=== PATIENT | female | born 1965 | race Asian ===

== ENCOUNTER 2019-10-08 13:48 | Emergency (ER) | payer SELFPAY ==
[~2019-10-08] VITALS: Ht 160 cm; Wt 56.7 kg
[2019-10-08 14:28] LABS: BASOPHILS % 0.7 % (0.0-1.0); EOSINOPHILS % 0.9 % (0.0-6.0); HEMATOCRIT 39.3 % (34.2-44.1); HEMOGLOBIN 12.9 g/dL (12.0-16.0); LYMPHOCYTES # (AUTO) 1.2 (1.0-3.2); LYMPHOCYTES % 28.4 % (18.0-39.1); MEAN CORPUSCULAR HEMOGLOBIN 29.2 pg (28-32); MEAN CORPUSCULAR HGB CONC 32.8 g/dL (31-35); MEAN CORPUSCULAR VOLUME 88.9 fL (81-99); MONOCYTES # (AUTO) 0.3 (0.2-0.8); MONOCYTES % 5.7 % (4.4-11.3); NEUTROPHILS # (AUTO) 2.8 (2.1-6.9); NEUTROPHILS % 64.1 % (38.7-80.0); PLATELET COUNT 193 x10e3/uL (140-360); RED BLOOD COUNT 4.42 x10e6/uL (3.6-5.1); RED CELL DISTRIBUTION WIDTH 11.5 % (11.7-14.4)
[2019-10-08 14:32] LABS: CLARITY,URINE CLEAR (CLEAR); COLOR,URINE YELLOW (YELLOW)
[2019-10-08 14:33] LABS: BILIRUBIN,URINE NEGATIVE (NEGATIVE); KETONES,URINE NEGATIVE (NEGATIVE); LEUKOCYTE ESTERASE ,URINE SMALL (NEGATIVE); NITRITE,URINE NEGATIVE (NEGATIVE); PREGNANCY TEST, URINE NEGATIVE (NEGATIVE); PROTEIN,URINE DIPSTICK NEGATIVE (NEGATIVE); URINE UROBILINOGEN 0.2 mg/dL (0.2 - 1)
--- NOTE | 2019-10-08 14:42 | Diagnostic Imaging Report ---
CT of the abdomen and pelvis, without contrast. History: Abdominal/flank pain. Comparison: None available. Technique: Multidetector CT scanning of the abdomen and pelvis was performed from the level of the lung bases to the inferior pubic rami without the use of contrast material. Coronal and sagittal multiplanar reformations were obtained. RADIATION DOSE: Total DLP: 218.21 mGy*cm Dose modulation, iterative reconstruction, and/or weight based adjustment of the mA/kV was utilized to reduce the radiation dose to as low as reasonably achievable. FINDINGS: The visualized intrathoracic contents demonstrate no significant abnormalities. The liver is normal in size and attenuation on this noncontrast enhanced examination. The gallbladder is unremarkable. There is no biliary ductal dilatation. The stomach, spleen, pancreas, and bilateral adrenal glands demonstrate an unremarkable noncontrast appearance. The kidneys are normal in size and location. There is a 3 mm nonobstructing stone identified within the inferior pole of the right kidney. There is no evidence for hydronephrosis. No ureteral stone or dilatation is appreciated. The urinary bladder demonstrates no significant abnormalities. The uterus and adnexa are grossly unremarkable. The abdominal aorta is normal course and caliber. The IVC is normal in caliber. Please note evaluation evaluation the bowel is limited without the use of enteric contrast material. The visualized loops of small and large bowel demonstrate no evidence of obstruction or inflammation. The appendix is not definitively visualized but there is no evidence of inflammation within its expected location within the right lower quadrant. There is no ascites or intraperitoneal free air. No abnormally enlarged lymph nodes are identified within the abdomen and pelvis. The osseous structures demonstrate no evidence for acute fracture or destructive process. The extraperitoneal soft tissues are unremarkable. IMPRESSION: 3 mm nonobstructing stone identified within the inferior pole the right kidney. No other acute abdominopelvic process identified. Signed by: Dr. Thomas Goodman MD on 10/08/2019 2:39 PM
[2019-10-08 14:44] LABS: BACTERIA,URINE MODERATE /HPF; EPITHELIAL CELLS,URINE MODERATE /LPF; RBC,URINE 0-5 /HPF (0-5)
[2019-10-08 14:47] LABS: ALANINE AMINOTRANSFERASE 25 IU/L (0-55); ALBUMIN 3.9 g/dL (3.5-5.0); ALBUMIN/GLOBULIN RATIO 1.3 (0.8-2.0); ALKALINE PHOSPHATASE 82 IU/L (40-150); BLOOD UREA NITROGEN 13 mg/dL (7-26); BUN/CREATININE RATIO 17 (6-25); CALCIUM 8.9 mg/dL (8.4-10.2); CARBON DIOXIDE 28 mmol/L (22-29); CHLORIDE 105 mmol/L (98-107); CREATININE, SERUM 0.77 mg/dL (0.57-1.11); EST GLOMERULAR FILTRATION RATE > 60 ML/MIN (60-); GLUCOSE 154 mg/dL (74-118); SODIUM 141 mmol/L (136-145)
[2019-10-08] MEDS ORDERED: SODIUM CHLORIDE 0.9% 1000ML 1,000 ML IV STA (14:59)
[2019-10-08] MEDS ORDERED: KETOROLAC TROMETHAMINE 30 MG/ML VIAL IV STA (15:00)
--- OUTSIDE RECORDS SUMMARY | 2019-10-08 16:08 | XMS REPORT ---
Author Author Sofiya Lopez [facility] eClinicalWorks Address Unknown Phone Unavailable Care Team Providers Care Food And Beverage Assistant Name Role Phone Jae Lopez Unavailable Allergies No Known Allergies Problems Problem Type Condition Code Onset Dates Condition Statu s Problem Diffuse cystic mastopathy of right breast N60.11 Active Problem Diffuse cystic mastopathy of left breast N60.12 Active Problem Other atopic dermatitis L20.89 Acti ve Problem hyperthyroidism w/o mention of goiter, crisis or storm 242.90 Active Problem Need hepatitis vaccine (A or B or A/B) V05.3 Active Medications No Known Medications Results No Known Results Summary Purpose eClinicalWorks Submission
--- OUTSIDE RECORDS SUMMARY | 2019-10-08 16:08 | XMS REPORT ---
Author Author Sofiya Albright Organization eClinical[employer] Address Unknown Phone Unavailable Care Team Providers Care Magnet Placer Name Role Phone Vanna Albright CP Unavailable Allergies, Adverse Reactions, Alerts Substance Reaction Event Type Penicillin shortness of breath Drug Allergy Problems Problem Type Condition Code Onset Dates Condition Statu s Assessment Diffuse cystic mastopathy of left breast N60.12 Active Assessment Encounter for gynecological examination without abnormal finding Z01.419 Active Assessment Screening for colon cancer Z12.11 A ctive Assessment Diffuse cystic mastopathy of right breast N60.11 Active Problem Diffuse cystic mastopathy of left breast N60.12 Active Problem hyperthyroidism w/o mention of goiter, crisis or storm 242.90 Active Problem Diffuse cystic mastopathy of right breast N60.11 Active Assessment Screening for cervical cancer Z12.4 Active Assessment Breast cancer screening Z12.39 Acti ve Problem Need hepatitis vaccine (A or B or A/B) V05.3 Active Medications Medication Code System Code Instructions Start Date End Date Status Dosage Methimazole ND 83438975583 10 MG Orally three times a day Nov 2013 Active 1 tablet with food Propranolol HCl [facility] 78416816157 10 MG Orally Three times a day N ov 2013 Active 1 tablet Results Name Result Date Reference Range Unit Abnormali ty Flag Pap IG, Ct-Ng, HPV-hr (288120) >30 +STD ----. . [id number] ----HPV, high-risk Negative [id number] Negative ----Chlamydia, Nuc. Acid Amp Negative [id number] Negative ----Gonococcus, Nuc. Acid Amp Negative [id number] Negative PDF Report ----PDF Report1 [facility] [id number] Summary Purpose eClinicalWorks Submission
--- OUTSIDE RECORDS SUMMARY | 2019-10-08 16:09 | XMS REPORT | Continuity of Care Document ---
Author Author [facility] Organization [facility] Address [address] [place] [address] Phone Unavailable Care Team Providers Care Erp Programmer Name Role Phone Usama NIELSON Attramausama Unavailable Problems Condition Name Condition Details Condition Category Status Onset Date Resolution Date Last Treatment Date Treating Clinician Comments Source Diffuse cystic mastopathy of left breast Diffuse cysti c mastopathy of left breast Problem Active [facility] Diffuse cystic mastopathy of right breast Diffuse cyst ic mastopathy of right breast Problem Active [facility] hyperthyroidism w/o mention of goiter, crisis or storm hyperthyroidism w/o mention of goiter, crisis or storm Problem Active [facility] Need hepatitis vaccine (A or B or A/B) Need hepatitis vaccin e (A or B or A/B) Problem Active [facility] Other atopic dermatitis Other atopic dermatitis Problem Active [facility] Leukopenia, unspecified type Leukopenia, unspecified type Problem Active [facility] Allergies, Adverse Reactions, Alerts Allergy Name Allergy Type Status Severity Reaction(s) Onset Date Inacti ve Date Treating Clinician Comments Source Penicillin Adverse Reaction Active shortness of breath [facility] Medications Ordered Medication Name Filled Medication Name Start Date Stop Da te Current Medication? Ordering Clinician Indication Dosage Frequency Signature (SIG) Comments Components Source Hydrocortisone Hydrocortisone 2019-08-12 00:00:00 2019-12-10 00:00:00 Yes Jae Lopez 1 application to affected area [facility] Methimazole Methimazole 2014-01-11 00:00:00 Yes Jae Lopez 1 tablet with food [facility] Propranolol HCl Propranolol HCl 2014-01-11 00:00:00 Yes Jae rodriguez 1 tablet [facility] Immunizations Ordered Immunization Name Filled Immunization Name Date Status Comments Source Tdap Adult Tdap Adult 2019-08-12 00:00:00 Completed [facility] Procedures This patient has no known procedures. Encounters Start Date/Time End Date/Time Encounter Type Admission Type [facility] Facility Care Department Encounter ID Source 2019-08-21 09:07:00 2019-08-21 09:07:00 [facility] [id number] 2019-08-12 08:05:00 2019-08-12 08:05:00 [facility] [id number] [facility] 2019-08-12 08:00:00 2019-08-12 08:00:00 [facility] [id number] [facility] 2019-05-05 13:30:00 2019-05-05 13:30:00 [facility] [id number] [facility] Results Test Description Test Time Test Comments Results Result Comments Source CT ABDOMEN/PELVIS WO 2019-10-08 14:32:00 [place] [address] Patient Name: JEFFERY CHRISTIANSON MR #: [id number] : 1965 Age/Sex: 53/F Req #: [id number] Adm Physician: Ordered by: YAQUELIN NIELSON DO Report #: [id number] Location: ER Room/Bed: Procedure: [id number] CT/CT ABDOMEN/PELVIS WO Exam Date: 10/08/19 Exam Time: 1420 REPORT STATUS: Signed CT of the abdomen and pelvis, without contrast. History: Abdominal/flank pain. Comparison: None available. Technique: Multidetector CT scanning of the abdomen and pelvis was performed from the level of the lung bases to the inferior pubic rami with out the use of contrast material. Coronal and sagittal multiplanar reformations were obtained. RADIATION DOSE: Total DLP: 218.21 mGy*cm Dose modulation, iterative reconstruction, and/or weight based adjustment of the mA/kV was utilized to reduce the radiation dose to as low as reasonably achievable. FINDINGS: The visualized intrathoracic contents demonstrate no significant abnormalities. The liver is normal in size and attenuation on this noncontrast enhanced examination. The gallbladder is unremarkable. There is no biliary ductal dilatation. The stomach, spleen, pancreas, and bilateral adrenal glands demonstrate an unremarkable noncontrast appearance. The kidneys are normal in size and location. There is a 3 mm nonobstructing stone identified within the inferior pole of the right kidney. There is no evidence for hydronephrosis. No ureteral stone or dilatation is appreciated. The urinary bladder demonstrates no significant abnormalities. The uterus and adnexa are grossly unremarkable. The abdominal aorta is normal course and caliber. The IVC is normal in caliber. Please note evaluation evaluation the bowel is limited without the use of enteric contrast material. The visualized loops of small and large bowel demonstrate no evidence of obstruction or inflammation. The appendix is not definitively visualized but there is no evidence of inflammation within its expected location within the right lower quadrant. There is no ascites or intraperitoneal free air. No abnormally enlarged lymph nodes are identified within the abdomen and pelvis. The osseous structures demonstrate no evidence for acute fracture or destructive process. The extraperitoneal soft tissues are unremarkable. IMPRESSION: 3 mm nonobstructing stone identified within the inferior pole the right kidney. No other acute abdominopelvic process identified. Signed by: Dr. Thomas Goodman MD on 10/08/2019 2:39 PM Dictated By: THOMAS GOODMAN MD [id number] Transcribed By: AARTI on 10/08/19 1439 COPY TO: YAQUELIN NIELSON DO
--- OUTSIDE RECORDS SUMMARY | 2019-10-08 16:09 | XMS REPORT ---
Author Author Sofiya Lopez Organization eClinicalWorks Address Unknown Phone Unavailable Care Team Providers Care Pediatric Speech Therapist Name Role Phone Jae Lopez CP Unavailable Allergies, Adverse Reactions, Alerts Substance Reaction Event Type Penicillin shortness of breath Drug Allergy Problems Problem Type Condition Code Onset Dates Condition Statu s Assessment Other atopic dermatitis L20.89 Acti ve Assessment Need for Tdap vaccination Z23 Ac tive Assessment Adult general medical exam Z00.00 A ctive Assessment Need for shingles vaccine Z23 Ac tive Problem Diffuse cystic mastopathy of right breast N60.11 Active Problem Diffuse cystic mastopathy of left breast N60.12 Active Problem Other atopic dermatitis L20.89 Acti ve Assessment Encounter for screening for malignant neoplasm of colo n Z12.11 Active Problem hyperthyroidism w/o mention of goiter, crisis or storm 242.90 Active Problem Need hepatitis vaccine (A or B or A/B) V05.3 Active Medications Medication Code System Code Instructions Start Date End Date Status Dosage Hydrocortisone [facility] 13864527848 2.5 % Externally Twice a day Ju 2019Dec 10, 2019 Active 1 application to affected ar ea Methimazole ND 46872425500 10 MG Orally three times a day Nov 2013 Active 1 tablet with food Propranolol HCl [facility] 93576246528 10 MG Orally Three times a day N ov 2013 Active 1 tablet Results No Known Results Immunizations Vaccine Administration Date Tdap Adult August 12, 2019 Summary Purpose eClinicalWorks Submission
--- OUTSIDE RECORDS SUMMARY | 2019-10-08 16:09 | XMS REPORT ---
Author Author Sofiya Lopez Organization eClinicalWorks Address Unknown Phone Unavailable Care Team Providers Care Gristmiller Name Role Phone Jae Lopez CP Unavailable Allergies No Known Allergies Problems Problem Type Condition Code Onset Dates Condition Statu s Problem Other atopic dermatitis L20.89 Acti ve Problem Diffuse cystic mastopathy of right breast N60.11 Active Problem Leukopenia, unspecified type D72.819 Active Problem Need hepatitis vaccine (A or B or A/B) V05.3 Active Problem Diffuse cystic mastopathy of left breast N60.12 Active Problem hyperthyroidism w/o mention of goiter, crisis or storm 242.90 Active Medications No Known Medications Results No Known Results Summary Purpose eClinicalWorks Submission
--- NOTE | 2019-10-08 16:25 | Emergency Department Note ---
History of Present Illnes History of Present Illness Chief Complaint: Abdominal Complaints History of Present Illness This is a 53 year old female arrived to the ED with intermittent right flank pain, denies dysuria/hematuria.. Historian: Patient Arrival Mode: Car Onset (how long ago): day(s) Radiation: Reports flank Severity: mild Duration (how long): day(s) Progression: unchanged Chronicity: new Context: Reports recent illness Relieving factors: none Associated symptoms: Reports denies other symptoms Past Medical/Family History Physician Review I have reviewed the patient's past medical and family history. Any updates have been documented here. Past Medical History Recent Fever: No Clinical Suspicion of Infectio: No New/Unexplained Change in Ment: No Past Medical History: None Past Surgical History: T&A Social History Smoking Cessation: Never Smoker Counseling Performed: No Alcohol Use: None Any Illegal Drug Use: No Physically hurt or threatened: No Other Any Pre-Existing Lines (PICC,: No Review of Systems Review of Systems Constitutional: Reports no symptoms EENTM: Reports no symptoms Cardiovascular: Reports no symptoms Respiratory: Reports no symptoms Gastrointestinal: Reports no symptoms Genitourinary: Reports as per HPI Musculoskeletal: Reports no symptoms Integumentary: Reports no symptoms Neurological: Reports no symptoms Psychological: Reports no symptoms Endocrine: Reports no symptoms Hematological/Lymphatic: Reports no symptoms Review of other systems: All other systems negative Physical Exam Related Data Allergies: Coded Allergies: Penicillins (Verified Allergy, Severe, 10/08/19) Triage Vital Signs Vital Signs Date Time Temp Pulse Resp B/P (MAP) Pulse Ox O2 Delivery O2 Flow Rate FiO2 10/08/19 13:54 98.8 76 17 133/88 100 Room Air Vital signs reviewed: Yes Physical Exam CONSTITUTIONAL Constitutional: Present well-developed, Present well-nourished HENT HENT: Present normocephalic, Present atraumatic, Present oropharynx clear/moist, Present nose normal HENT L/R: Present left ext ear normal, Present right ext ear normal EYES Eyes: Reports PERRL, Reports conjunctivae normal NECK Neck: Present ROM normal PULMONARY Pulmonary: Present effort normal, Present breath sounds normal CARDIOVASCULAR Cardiovascular: Present regular rhythm, Present heart sounds normal, Present capillary refill normal, Present normal rate GASTROINTESTINAL Abdominal: Present soft, Present nontender, Present bowel sounds normal GENITOURINARY Genitourinary: Present exam deferred SKIN Skin: Present warm, Present dry MUSCULOSKELETAL Musculoskeletal: Present ROM normal NEUROLOGICAL Neurological: Present alert, Present oriented x 3, Present no gross motor or sensory deficits PSYCHOLOGICAL Psychological: Present mood/affect normal, Present judgement normal Results Laboratory Result Diagram: 10/08/19 1400 10/08/19 1400 Laboratory Laboratory Tests Test 10/08/19 14:00 White Blood Count 4.37 x10e3/uL (4.8-10.8) Red Blood Count 4.42 x10e6/uL (3.6-5.1) Hemoglobin 12.9 g/dL (12.0-16.0) Hematocrit 39.3 % (34.2-44.1) Mean Corpuscular Volume 88.9 fL (81-99) Mean Corpuscular Hemoglobin 29.2 pg (28-32) Mean Corpuscular Hemoglobin Concent 32.8 g/dL (31-35) Red Cell Distribution Width 11.5 % (11.7-14.4) Platelet Count 193 x10e3/uL (140-360) Neutrophils (%) (Auto) 64.1 % (38.7-80.0) Lymphocytes (%) (Auto) 28.4 % (18.0-39.1) Monocytes (%) (Auto) 5.7 % (4.4-11.3) Eosinophils (%) (Auto) 0.9 % (0.0-6.0) Basophils (%) (Auto) 0.7 % (0.0-1.0) Neutrophils # (Auto) 2.8 (2.1-6.9) Lymphocytes # (Auto) 1.2 (1.0-3.2) Monocytes # (Auto) 0.3 (0.2-0.8) Eosinophils # (Auto) 0.0 (0.0-0.4) Basophils # (Auto) 0.0 (0.0-0.1) Absolute Immature Granulocyte (auto 0.01 x10e3/uL (0-0.1) Urine Color Yellow (YELLOW) Urine Clarity Clear (CLEAR) Urine pH 6 (5 - 7) Urine Specific [place] 1.020 (1.010-1.025) Urine Protein Negative (NEGATIVE) Urine Glucose (UA) Negative (NEGATIVE) Urine Ketones Negative (NEGATIVE) Urine Blood Trace (NEGATIVE) Urine Nitrite Negative (NEGATIVE) Urine Bilirubin Negative (NEGATIVE) Urine Urobilinogen 0.2 mg/dL (0.2 - 1) Urine Leukocyte Esterase Small (NEGATIVE) Urine RBC 0-5 /HPF (0-5) Urine WBC 6-10 /HPF (0-5) Urine Epithelial Cells Moderate /LPF (NONE) Urine Bacteria Moderate /HPF (NONE) Urine Test Negative (NEGATIVE) Sodium Level 141 mmol/L (136-145) Potassium Level 4.0 mmol/L (3.5-5.1) Chloride Level 105 mmol/L (98-107) Carbon Dioxide Level 28 mmol/L (22-29) Anion Gap 12.0 mmol/L (8-16) Blood Urea Nitrogen 13 mg/dL (7-26) Creatinine 0.77 mg/dL (0.57-1.11) Estimat Glomerular Filtration Rate > 60 ML/MIN (60-) BUN/Creatinine Ratio 17 (6-25) Glucose Level 154 mg/dL (74-118) Calcium Level 8.9 mg/dL (8.4-10.2) Total Bilirubin 0.5 mg/dL (0.2-1.2) Aspartate Amino Transf (AST/SGOT) 19 IU/L (5-34) Alanine Aminotransferase (ALT/SGPT) 25 IU/L (0-55) Alkaline Phosphatase 82 IU/L (40-150) Total Protein 7.0 g/dL (6.5-8.1) Albumin 3.9 g/dL (3.5-5.0) Globulin 3.1 g/dL (2.3-3.5) Albumin/Globulin Ratio 1.3 (0.8-2.0) Lab results reviewed: Yes Imaging Imaging results reviewed: Yes Assessment & Plan Medical Decision Making MDM 53-year-old female arrived to the ED with right flank pain, noted to have a 3 mm stone. Patient's pain well controlled patient stable for discharge with Flomax and pain medicine. Assessment & Plan Final Impression: (1) Anemia Depart Disposition: HOME, SELF-CARE Last Vital Signs Date Time Temp Pulse Resp B/P (MAP) Pulse Ox O2 Delivery O2 Flow Rate FiO2 10/08/19 13:54 98.8 76 17 133/88 100 Room Air Medications in the ED Sodium Chloride 1,000 ml @ 0 mls/hr Q0M STAT IV Last administered on 10/08/19at 15:30; Admin Dose 999 MLS/HR; Start 10/08/19 at 14:59; Stop 10/08/19 at 15:00; Status DC Ketorolac Tromethamine 30 mg ONCE STAT IV Last administered on 10/08/19at 15:30; Admin Dose 30 MG; Start 10/08/19 at 15:00; Stop 10/08/19 at 15:03; Status DC YAQUELIN NIELSON DO Oct 08, 2019 16:25
== END 2019-10-08 16:11 | disposition home or self-care (01) ==
LOC: ER 14:00
DX: M54.5 Low back pain (principal); N20.0 Calculus of kidney; R10.9 Unspecified abdominal pain
CPT/HCPCS: 36415; 74176; 80053; 81001; 81025; 85025; 99284; J1885; J7030

== ENCOUNTER 2019-10-11 00:16 | Emergency (ER) | payer SELFPAY ==
[~2019-10-11] VITALS: Ht 160 cm; Wt 56.7 kg
--- NOTE | 2019-10-11 01:06 | Emergency Department Note ---
History of Present Illnes History of Present Illness Chief Complaint: Abdominal Complaints History of Present Illness This is a 53 year old female PRESENTS WITH PAIN TO RIGHT SIDE AND HAS A RASH . Historian: Patient Arrival Mode: Car Onset (how long ago): day(s) (1) Location: RIGHT SIDE Quality: PAIN Radiation: Reports non-radiation Severity: moderate Onset quality: sudden Duration (how long): day(s) (1) Timing of current episode: constant Progression: unchanged Chronicity: new Context: Denies recent illness Relieving factors: none Exacerbating factors: none Associated symptoms: Reports denies other symptoms Past Medical/Family History Physician Review I have reviewed the patient's past medical and family history. Any updates have been documented here. Past Medical History Recent Fever: No Clinical Suspicion of Infectio: No New/Unexplained Change in Ment: No Past Medical History: Kidney Stones Past Surgical History: T&A Social History Smoking Cessation: Never Smoker Counseling Performed: No Alcohol Use: None Any Illegal Drug Use: No Other Any Pre-Existing Lines (PICC,: No Review of Systems Review of Systems Constitutional: Reports no symptoms EENTM: Reports no symptoms Cardiovascular: Reports no symptoms Respiratory: Reports no symptoms Gastrointestinal: Reports no symptoms Genitourinary: Reports no symptoms Musculoskeletal: Reports no symptoms Integumentary: Reports as per HPI Neurological: Reports no symptoms Psychological: Reports no symptoms Endocrine: Reports no symptoms Hematological/Lymphatic: Reports no symptoms Physical Exam Related Data Allergies: Coded Allergies: Penicillins (Verified Allergy, Severe, 10/08/19) Triage Vital Signs Vital Signs Date Time Temp Pulse Resp B/P (MAP) Pulse Ox O2 Delivery O2 Flow Rate FiO2 10/11/19 00:46 98.1 74 18 144/84 99 Room Air Vital signs reviewed: Yes Physical Exam CONSTITUTIONAL Constitutional: Present well-developed, Present well-nourished HENT HENT: Present normocephalic, Present atraumatic, Present oropharynx clear/moist, Present nose normal HENT L/R: Present left ext ear normal, Present right ext ear normal EYES Eyes: Reports PERRL, Reports conjunctivae normal NECK Neck: Present ROM normal PULMONARY Pulmonary: Present effort normal, Present breath sounds normal CARDIOVASCULAR Cardiovascular: Present regular rhythm, Present heart sounds normal, Present capillary refill normal, Present normal rate GASTROINTESTINAL Abdominal: Present soft, Present nontender, Present bowel sounds normal GENITOURINARY Genitourinary: Present exam deferred SKIN Skin: Present warm, Present dry, Present rash (ZOSTER RASH TO RIGHT FLANK) MUSCULOSKELETAL Musculoskeletal: Present ROM normal NEUROLOGICAL Neurological: Present alert, Present oriented x 3, Present no gross motor or sensory deficits PSYCHOLOGICAL Psychological: Present mood/affect normal, Present judgement normal Assessment & Plan Medical Decision Making MDM PT WITH SHINGLES DISCHARGED WITH VALTREX 100 MG PO TID FOR 7 DAYS, TYLENOL # 3 ONE PO Q 6 HOURS PRN PAIN Assessment & Plan Final Impression: (1) Shingles (2) Neuralgia Depart Disposition: HOME, SELF-CARE Last Vital Signs Date Time Temp Pulse Resp B/P (MAP) Pulse Ox O2 Delivery O2 Flow Rate FiO2 10/11/19 00:46 98.1 74 18 144/84 99 Room Air ALICE JOHNSON MD Oct 11, 2019 01:05
--- OUTSIDE RECORDS SUMMARY | 2019-10-11 02:44 | XMS REPORT | Continuity of Care Document ---
Author Author [facility] t Organization [facility] Address [address] [place] [address] Phone Unavailable Care Team Providers Care Bench Assembly Inspector Name Role Phone MADDIINGRIDUsama YAQUELIN Attramausama Unavailable Problems Condition Name Condition Details Condition Category Status Onset Date Resolution Date Last Treatment Date Treating Clinician Comments Source Diffuse cystic mastopathy of left breast Diffuse cysti c mastopathy of left breast Problem Active [facility] Diffuse cystic mastopathy of right breast Diffuse cyst ic mastopathy of right breast Problem Active [facility] hyperthyroidism w/o mention of goiter, crisis or storm hyperthyroidism w/o mention of goiter, crisis or storm Problem Active [facility] Need hepatitis vaccine (A or B or A/B) Need hepatitis vaccin e (A or B or A/B) Problem Active [facility] Other atopic dermatitis Other atopic dermatitis Problem Active [facility] Leukopenia, unspecified type Leukopenia, unspecified type Problem Active [facility] Allergies, Adverse Reactions, Alerts Allergy Name Allergy Type Status Severity Reaction(s) Onset Date Inacti ve Date Treating Clinician Comments Source Penicillin Adverse Reaction Active shortness of breath [facility] Medications Ordered Medication Name Filled Medication Name Start Date Stop Da te Current Medication? Ordering Clinician Indication Dosage Frequency Signature (SIG) Comments Components Source Hydrocortisone Hydrocortisone 2019-08-12 00:00:00 2019-12-10 00:00:00 Yes Jae Lopez 1 application to affected area [facility] Methimazole Methimazole 2014-01-11 00:00:00 Yes Jae Lopez 1 tablet with food [facility] Propranolol HCl Propranolol HCl 2014-01-11 00:00:00 Yes Jae rodriguez 1 tablet [facility] Immunizations Ordered Immunization Name Filled Immunization Name Date Status Comments Source Tdap Adult Tdap Adult 2019-08-12 00:00:00 Completed [facility] Procedures This patient has no known procedures. Encounters Start Date/Time End Date/Time Encounter Type Admission Type [facility] Facility Care Department Encounter ID Source 2019-08-21 09:07:00 2019-08-21 09:07:00 [facility] [id number] 2019-08-12 08:05:00 2019-08-12 08:05:00 [facility] [id number] [facility] 2019-08-12 08:00:00 2019-08-12 08:00:00 [facility] [id number] [facility] 2019-05-05 13:30:00 2019-05-05 13:30:00 [facility] [id number] [facility] Results Test Description Test Time Test Comments Results Result Comments Source CT ABDOMEN/PELVIS WO 2019-10-08 14:32:00 [place] [id number] Patient Name: JEFFERY CHRISTIANSON MR #: [id number] : 1965 Age/Sex: 53/F Req #: [id number] Adm Physician: Ordered by: YAQUELIN NIELSON DO Report #: [id number] Location: ER Room/Bed: Procedure: [id number] CT/CT ABDOMEN/PELVIS WO Exam Date: 10/08/19 Exam [...] 2:39 PM Dictated By: THOMAS GOODMAN MD [id number] Transcribed By: AARTI on 10/08/19 1439 COPY TO: YAQUELIN NIELSON DO
== END 2019-10-11 00:55 | disposition home or self-care (01) ==
LOC: ER 00:51
DX: B02.29 Other postherpetic nervous system involvement (principal); Z87.442 Personal history of urinary calculi
CPT/HCPCS: 99282